=== PATIENT | male | born 1980 | race Two or more races ===

== ENCOUNTER 2025-02-04 18:18 | Inpatient (IN) | payer OTHER ==
[~2025-02-04] VITALS: Ht 172.7 cm; Wt 68.8 kg
[2025-02-04 19:39] LABS: BASOPHILS % (AUTO) 0.8 % (0.0-2.0); EOSINOPHILS % (AUTO) 0.5 % (1.0-6.0); HEMATOCRIT 41.8 % (41-53); HEMOGLOBIN 14.4 g/dL (13.5-17.5); LYMPHOCYTES # (AUTO) 1.3 K/uL (1.0-4.8); LYMPHOCYTES % (AUTO) 14.6 % (22.0-44.0); MEAN CORPUSCULAR HEMOGLOBIN 34.7 pg (26.0-34.0); MEAN CORPUSCULAR HGB CONC 34.4 G/dL (31.0-37.0); MEAN CORPUSCULAR VOLUME 101 fL (80-100); MONOCYTES % (AUTO) 11.9 % (2.0-9.0); NEUTROPHILS # (AUTO) 6.3 K/uL (1.8-7.7); NEUTROPHILS % (AUTO) 72.2 % (40.0-70.0); PLATELET COUNT (AUTO) 175 K/uL (150-450); RED BLOOD CELL COUNT(AUTO) 4.13 MIL/uL (4.50-5.90); RED CELL DISTRIBUTION WIDTH 13.8 % (11.5-14.5); WHITE BLOOD COUNT (AUTO) 8.7 K/uL (4.5-11.0)
[2025-02-04 19:47] LABS: ANION GAP 12 mmol/L (8-16); CALCIUM, TOTAL 10.4 mg/dL (8.8-10.5); CARBON DIOXIDE 24 mmol/L (22-29); CHLORIDE 103 mmol/L (98-107); CREATININE 0.64 mg/dL (0.60-1.30); GLOMERULAR FILTR. RATE CALC > 60 mL/min (>60); GLUCOSE,RANDOM 109 mg/dL (70-110); POTASSIUM 3.2 mmol/L (3.5-5.1); SODIUM SERUM 139 mmol/L (136-145); UREA NITROGEN, BLOOD 21 mg/dL (7-18)
[2025-02-04] MEDS: ChlordiazePOXIDE HCL 25 MG CAPSULE PO ONE (23:35)
[2025-02-05] MEDS ORDERED: LORazepam 2 MG/ML VIAL IVP PRN ×2 (00:15)
[2025-02-05] MEDS ORDERED: ONDANSETRON HCL 4 MG/2 ML VIAL IVP PRN (00:15)
[2025-02-05] MEDS ORDERED: ACETAMINOPHEN 325 MG TABLET PO PRN (00:15)
[2025-02-05 00:20] LABS: PH,URINE DRUG SCREEN 5.5 (5.0-8.0)
[2025-02-05 00:28] LABS: ALCOHOL, URINE DRUG SCREEN NEGATIVE (NEGATIVE); AMPHET/METH SCREEN,URINE NEGATIVE (NEGATIVE); BARBITURATE SCREEN, URINE NEGATIVE (NEGATIVE); BENZODIAZEPINES SCREEN,URINE NEGATIVE (NEGATIVE); CANNABINOID SCREEN,URINE NEGATIVE (NEGATIVE); COCAINE SCREEN,URINE NEGATIVE (NEGATIVE); METHADONE SCREEN, URINE NEGATIVE (NEGATIVE); OPIATE SCREEN,URINE NEGATIVE (NEGATIVE); PHENCYCLIDINE SCREEN,URINE NEGATIVE (NEGATIVE)
[2025-02-05] MEDS: 1: MAGNESIUM SULFATE 2 GM, MVI, ADULT NO.1 WITH VIT K 10 ML, THIAMINE 100 MG, FOLIC ACID IV SCH (01:20)
[2025-02-05] MEDS: POTASSIUM CHLORIDE 20 MEQ ER TABLET PO ONE (01:20)
[2025-02-05 03:53] LABS: COVID AG,FIA SOURCE NASAL SWAB
[2025-02-05 04:14] LABS: SARS-COV2 (COVID) ANTIGEN,FIA Negative (Negative)
[2025-02-05] MEDS: HEPARIN SODIUM,PORCINE 5,000 UNITS/ML VIAL SQ SCH (07:24)
[2025-02-05] MEDS ORDERED: POTASSIUM CHL 10 MEQ/WATER 50 ML IV PRN (08:15)
[2025-02-05] MEDS: DOCUSATE SODIUM 100 MG CAPSULE PO SCH (08:53)
[2025-02-05 10:16] VITALS: BP 123/86; PULSE 78; RESP 18; TEMP 98.4; O2SAT 98
[2025-02-05 11:31] LABS: BASOPHILS % (AUTO) 0.8 % (0.0-2.0); HEMOGLOBIN 13.3 g/dL (13.5-17.5); LYMPHOCYTES % (AUTO) 15.9 % (22.0-44.0); MEAN CORPUSCULAR HEMOGLOBIN 34.7 pg (26.0-34.0); MEAN CORPUSCULAR HGB CONC 34.3 G/dL (31.0-37.0); MEAN CORPUSCULAR VOLUME 101 fL (80-100); MONOCYTES # (AUTO) 0.8 K/uL (0.1-1.0); MONOCYTES % (AUTO) 12.3 % (2.0-9.0); NEUTROPHILS # (AUTO) 4.3 K/uL (1.8-7.7); PLATELET COUNT (AUTO) 157 K/uL (150-450); RED BLOOD CELL COUNT(AUTO) 3.85 MIL/uL (4.50-5.90); RED CELL DISTRIBUTION WIDTH 13.6 % (11.5-14.5); WHITE BLOOD COUNT (AUTO) 6.2 K/uL (4.5-11.0)
[2025-02-05 11:39] LABS: ANION GAP 10 mmol/L (8-16); CALCIUM, TOTAL 8.5 mg/dL (8.8-10.5); CARBON DIOXIDE 28 mmol/L (22-29); CHLORIDE 103 mmol/L (98-107); CREATININE 0.51 mg/dL (0.60-1.30); GLOMERULAR FILTR. RATE CALC > 60 mL/min (>60); GLUCOSE,RANDOM 130 mg/dL (70-110); POTASSIUM 3.2 mmol/L (3.5-5.1); SODIUM SERUM 141 mmol/L (136-145); UREA NITROGEN, BLOOD 10 mg/dL (7-18)
[2025-02-05] MEDS: POTASSIUM CHLORIDE 20 MEQ ER TABLET PO PRN (11:59)
[2025-02-05 12:56] LABS: RBC MORPHOLOGY COMMENT ABNORMAL RBC MORPH
[2025-02-05 16:01] VITALS: BP 108/87; PULSE 79; RESP 18; TEMP 98.4; O2SAT 98
[2025-02-05] MEDS ORDERED: SODIUM CHLORIDE 0.9% 1,000 ML ONE (17:27)
[2025-02-05 20:14] VITALS: BP 121/92; PULSE 67; RESP 18; TEMP 98.1; O2SAT 99
[2025-02-06 00:49] VITALS: BP 128/96; PULSE 68; RESP 18; TEMP 98.6; O2SAT 99
[2025-02-06 06:01] VITALS: BP 129/89; PULSE 79; RESP 20; TEMP 98.6; O2SAT 100
[2025-02-06 06:51] LABS: BASOPHILS % (AUTO) 1.1 % (0.0-2.0); EOSINOPHILS % (AUTO) 2.1 % (1.0-6.0); HEMATOCRIT 39.7 % (41-53); HEMOGLOBIN 13.8 g/dL (13.5-17.5); LYMPHOCYTES # (AUTO) 1.2 K/uL (1.0-4.8); LYMPHOCYTES % (AUTO) 25.8 % (22.0-44.0); MEAN CORPUSCULAR HEMOGLOBIN 35.5 pg (26.0-34.0); MEAN CORPUSCULAR HGB CONC 34.7 G/dL (31.0-37.0); MEAN CORPUSCULAR VOLUME 102 fL (80-100); MONOCYTES # (AUTO) 0.8 K/uL (0.1-1.0); MONOCYTES % (AUTO) 16.3 % (2.0-9.0); NEUTROPHILS # (AUTO) 2.6 K/uL (1.8-7.7); NEUTROPHILS % (AUTO) 54.7 % (40.0-70.0); PLATELET COUNT (AUTO) 160 K/uL (150-450); RED BLOOD CELL COUNT(AUTO) 3.88 MIL/uL (4.50-5.90); RED CELL DISTRIBUTION WIDTH 13.8 % (11.5-14.5); WHITE BLOOD COUNT (AUTO) 4.7 K/uL (4.5-11.0)
[2025-02-06 07:04] LABS: ANION GAP 9 mmol/L (8-16); CALCIUM, TOTAL 8.4 mg/dL (8.8-10.5); CARBON DIOXIDE 27 mmol/L (22-29); CHLORIDE 107 mmol/L (98-107); CREATININE 0.51 mg/dL (0.60-1.30); GLOMERULAR FILTR. RATE CALC > 60 mL/min (>60); GLUCOSE,RANDOM 105 mg/dL (70-110); POTASSIUM 3.6 mmol/L (3.5-5.1); SODIUM SERUM 143 mmol/L (136-145); UREA NITROGEN, BLOOD 8 mg/dL (7-18)
[2025-02-06 08:40] VITALS: BP 135/97; PULSE 76; RESP 18; TEMP 98.4; O2SAT 99
[2025-02-06 11:04] LABS: RBC MORPHOLOGY COMMENT ABNORMAL RBC MORPH
[2025-02-06 11:45] VITALS: BP 124/88; PULSE 79; RESP 19; TEMP 98.8; O2SAT 98
[2025-02-06 16:02] VITALS: BP 119/92; PULSE 66; RESP 19; TEMP 98.6; O2SAT 97
[2025-02-06 20:00] VITALS: BP 124/85; PULSE 74; RESP 18; TEMP 98.4; O2SAT 99
[2025-02-07] VITALS: BP 108/87; PULSE 63; RESP 17; TEMP 98.1; O2SAT 99
[2025-02-07 04:00] VITALS: BP 130/87; PULSE 67; RESP 18; TEMP 98.4; O2SAT 99
[2025-02-07 06:53] LABS: BASOPHILS % (AUTO) 1.9 % (0.0-2.0); EOSINOPHILS % (AUTO) 2.7 % (1.0-6.0); HEMATOCRIT 41.5 % (41-53); HEMOGLOBIN 14.3 g/dL (13.5-17.5); LYMPHOCYTES # (AUTO) 1.3 K/uL (1.0-4.8); LYMPHOCYTES % (AUTO) 28.6 % (22.0-44.0); MEAN CORPUSCULAR HEMOGLOBIN 35.3 pg (26.0-34.0); MEAN CORPUSCULAR HGB CONC 34.5 G/dL (31.0-37.0); MEAN CORPUSCULAR VOLUME 102 fL (80-100); MONOCYTES # (AUTO) 0.9 K/uL (0.1-1.0); MONOCYTES % (AUTO) 18.6 % (2.0-9.0); NEUTROPHILS # (AUTO) 2.3 K/uL (1.8-7.7); NEUTROPHILS % (AUTO) 48.2 % (40.0-70.0); PLATELET COUNT (AUTO) 186 K/uL (150-450); RED BLOOD CELL COUNT(AUTO) 4.06 MIL/uL (4.50-5.90); RED CELL DISTRIBUTION WIDTH 13.5 % (11.5-14.5); WHITE BLOOD COUNT (AUTO) 4.7 K/uL (4.5-11.0)
[2025-02-07 07:12] LABS: ANION GAP 8 mmol/L (8-16); CALCIUM, TOTAL 9.3 mg/dL (8.8-10.5); CARBON DIOXIDE 28 mmol/L (22-29); CHLORIDE 105 mmol/L (98-107); CREATININE 0.57 mg/dL (0.60-1.30); GLOMERULAR FILTR. RATE CALC > 60 mL/min (>60); GLUCOSE,RANDOM 106 mg/dL (70-110); POTASSIUM 3.8 mmol/L (3.5-5.1); SODIUM SERUM 141 mmol/L (136-145); UREA NITROGEN, BLOOD 10 mg/dL (7-18)
[2025-02-07 08:13] LABS: RBC MORPHOLOGY COMMENT ABNORMAL RBC MORPH
[2025-02-07 08:31] VITALS: BP 116/83; PULSE 77; RESP 19; TEMP 98.4; O2SAT 98
[2025-02-07 11:25] VITALS: BP 116/81; PULSE 68; RESP 19; TEMP 98.4; O2SAT 98
[2025-02-07 15:59] VITALS: BP 117/81; PULSE 74; RESP 18; TEMP 98.4; O2SAT 98
[2025-02-07 20:00] VITALS: BP 115/82; PULSE 79; RESP 18; TEMP 98.7; O2SAT 96
[2025-02-08 00:25] VITALS: BP 116/77; PULSE 68; RESP 17; TEMP 99.1; O2SAT 98
[2025-02-08 04:16] VITALS: BP 122/76; PULSE 70; RESP 18; TEMP 98.6; O2SAT 98
[2025-02-08 09:20] VITALS: BP 117/76; PULSE 75; RESP 18; TEMP 99; O2SAT 99
[2025-02-08 16:00] VITALS: BP 116/87; PULSE 75; RESP 18; TEMP 98.4; O2SAT 99
[2025-02-08 19:54] VITALS: BP 118/78; PULSE 81; RESP 17; TEMP 98.6; O2SAT 97
[2025-02-09 00:03] VITALS: BP 104/70; PULSE 64; RESP 18; TEMP 98.6; O2SAT 98
[2025-02-09 03:47] VITALS: BP 111/74; PULSE 74; RESP 18; TEMP 98.8; O2SAT 99
[2025-02-09 08:20] VITALS: BP 101/82; PULSE 64; RESP 19; TEMP 99; O2SAT 97
[2025-02-09] MEDS ORDERED: ACET-2247 PO (11:23)
[2025-02-09 15:30] VITALS: BP 110/76; PULSE 67; RESP 19; TEMP 98.6; O2SAT 98
== END 2025-02-09 16:10 | DRG 640 ==
LOC: EMS 18:18 → EDH 02-05 00:15 → 5S 02-05 09:50
PROVIDERS: ADMIT Internal Medicine; ATTEND Internal Medicine
PROC: 2W3JX1Z Immobilization of Right Finger using Splint (ICD-10-PCS; principal; 2025-02-08)
DX: E87.6 Hypokalemia (principal); E43 Unspecified severe protein-calorie malnutrition; G93.40 Encephalopathy, unspecified; R44.3 Hallucinations, unspecified; F10.239 Alcohol dependence with withdrawal, unspecified; Z20.822 Contact with and (suspected) exposure to COVID-19; S62.316A Displaced fracture of base of fifth metacarpal bone, right hand, initial encounter for closed fracture; W22.09XA Striking against other stationary object, initial encounter; Y93.89 Activity, other specified; Y92.89 Other specified places as the place of occurrence of the external cause; Y99.8 Other external cause status; Z68.23 Body mass index [BMI] 23.0-23.9, adult
CPT/HCPCS: 70450; 73200; 80048; 80307; 83735; 84132; 85025; 99285; G0480; J1644; J3411; J3475; J3490; J7030